=== PATIENT | male | born 1995 | race Caucasian/White ===

== ENCOUNTER 2017-12-16 22:18 | Emergency (ER) | payer OTHER ==
[~2017-12-16] VITALS: Ht 177.8 cm; Wt 83.9 kg
[2017-12-16 22:32] VITALS: Ht 177.8 cm; Wt 83.9 kg
[2017-12-16 23:09] VITALS: BP 132/80
== END 2017-12-16 23:09 | disposition home or self-care (01) ==
LOC: ED 22:18
DX: S86.912A Strain of unspecified muscle(s) and tendon(s) at lower leg level, left leg, initial encounter (principal); X58.XXXA Exposure to other specified factors, initial encounter; Y93.66 Activity, soccer; Y92.89 Other specified places as the place of occurrence of the external cause; Y99.8 Other external cause status

== ENCOUNTER 2018-07-08 23:55 | Emergency (ER) | payer OTHER ==
[~2018-07-08] VITALS: Ht 175.3 cm; Wt 86.6 kg
[2018-07-09] VITALS: Ht 175.3 cm; Wt 86.6 kg
[2018-07-09 01:23] VITALS: BP 154/90
== END 2018-07-09 01:23 | disposition home or self-care (01) ==
LOC: ED 23:55
DX: T18.9XXA Foreign body of alimentary tract, part unspecified, initial encounter (principal); I10 Essential (primary) hypertension; Z98.890 Other specified postprocedural states; W45.8XXA Other foreign body or object entering through skin, initial encounter; Y93.89 Activity, other specified; Y92.89 Other specified places as the place of occurrence of the external cause; Y99.8 Other external cause status
CPT/HCPCS: J1885; Q0092

== ENCOUNTER 2019-03-04 14:19 | Emergency (ER) | payer OTHER ==
[~2019-03-04] VITALS: Ht 175.3 cm; Wt 88.0 kg
[2019-03-04 14:31] VITALS: Ht 175.3 cm; Wt 88.0 kg
[2019-03-04 15:14] VITALS: BP 155/78
== END 2019-03-04 15:14 | disposition home or self-care (01) ==
LOC: ED 14:19
DX: H92.02 Otalgia, left ear (principal); H91.92 Unspecified hearing loss, left ear

== ENCOUNTER 2019-08-26 16:30 | Emergency (ER) | payer OTHER ==
[~2019-08-26] VITALS: Ht 175.3 cm; Wt 86.2 kg
[2019-08-26 16:39] VITALS: Ht 175.3 cm; Wt 86.2 kg
[2019-08-26 19:35] VITALS: BP 151/94
[2019-08-28 06:10] LABS: RAPID PLASMA REAGIN Non Reactive (Non Reactive)
== END 2019-08-26 19:35 | disposition home or self-care (01) ==
LOC: ED 16:30
PROVIDERS: Emergency Medicine
DX: J11.1 Influenza due to unidentified influenza virus with other respiratory manifestations (principal); I10 Essential (primary) hypertension; Z98.890 Other specified postprocedural states
CPT/HCPCS: 87491; 87591; 87804